=== PATIENT | male | born 1975 | race Caucasian/White ===

== ENCOUNTER 2022-02-08 08:20 | Outpatient (CLI) | payer BC ==
[2022-02-08] MEDS ORDERED: Iopamidol 370 76% 100 ML VIAL ONE (10:34)
[2022-02-08] MEDS ORDERED: Magnevist 469MG/ML 20 ML VIAL ONE (10:39)
== END 2022-02-08 08:21 | disposition home or self-care (01) ==
LOC: CSHMRI 08:20
PROVIDERS: ATTEND Surgery
DX: I67.1 Cerebral aneurysm, nonruptured (principal); R51.9 Headache, unspecified
CPT/HCPCS: 70496; 70553; A9579; Q9967